=== PATIENT | female | born 1960 | race African-American/Black ===

== ENCOUNTER 2022-01-15 21:15 | Inpatient (IN) | payer MEDICAID, OTHER ==
[~2022-01-15] VITALS: Ht 160 cm; Wt 52.2 kg
[2022-01-15 23:08] LABS: HEMATOCRIT. 39.3 % (36.0-48.0); MEAN CORPUSCULAR HEMOGLOBIN 31.9 pg (28.0-32.0); MEAN CORPUSCULAR VOLUME 96.5 fL (81.0-99.0); MEAN PLATELET VOLUME 7.9 fl (7.4-10.4); PLATELET 226 x1000/uL (130-400); RED BLOOD CELL COUNT 4.07 mill/uL (4.2-5.4); RED CELL DISTRIBUTION WIDTH 13.7 % (11.6-14.6)
[2022-01-15 23:17] LABS: CHLORIDE 106 mEq/L (98-107)
[2022-01-15 23:32] LABS: CLARITY URINE CLEAR (CLEAR); COLOR URINE YELLOW (YELLOW); KETONES URINE TRACE (NEGATIVE); LEUKOCYTE ESTERASE URINE TRACE (NEGATIVE); NITRITE URINE POSITIVE (NEGATIVE); OCCULT BLOOD URINE NEGATIVE (NEGATIVE); PROTEIN URINE NEGATIVE (NEGATIVE); UROBILINOGEN URINE 0.2 E.U./dL (0.2-1.0)
[2022-01-16] MEDS ORDERED: ONDANSETRON HCL 4MG/2ML INJ IV PRN (07:00)
[2022-01-16] MEDS ORDERED: MAGNESIUM/ALUMINUM HYDROXIDE/SIMETHICONE 30ML UDC PO PRN (07:00)
[2022-01-16] MEDS ORDERED: DOCUSATE SODIUM 100MG CAPSULE PO PRN (07:00)
[2022-01-16] MEDS ORDERED: ACETAMINOPHEN 325MG TABLET PO PRN (07:00)
[2022-01-16] MEDS: DEXT 5%/0.45% NACL 1000ML 1,000 ML IV SCH ×2 (07:21→20:20)
[2022-01-16 08:18] LABS: PLATELET ESTIMATE NORMAL
[2022-01-16] MEDS: ENOXAPARIN 40MG/0.4ML SYR SUBCUT SCH (09:56)
[2022-01-16] MEDS ORDERED: BISACODYL 10MG SUPP PR PRN (13:00)
[2022-01-16] MEDS ORDERED: LACTULOSE 20G/30ML UDC PO SCH (13:00)
[2022-01-16] MEDS: NITROFURANTOIN 100MG M/M CAPSULE PO SCH ×2 (14:30→21:53)
[2022-01-16] MEDS: HYDROCODONE/ACETAMINOPHEN 5/325MG TABLET PO PRN (16:15)
[2022-01-17 01:10] VITALS: BP 126/67
[2022-01-17] MEDS: HYDROCODONE/ACETAMINOPHEN 5/325MG TABLET PO PRN (04:15)
[2022-01-17 07:08] LABS: BASOPHILS % 0.8 % (0.0-2.0); EOSINOPHILS % 1.4 % (0.0-5.0); HEMATOCRIT. 38.5 % (36.0-48.0); HEMOGLOBIN. 12.6 g/dL (12.0-16.0); MEAN CORPUSCULAR HEMOGLOBIN 31.6 pg (28.0-32.0); MEAN CORPUSCULAR VOLUME 96.3 fL (81.0-99.0); MEAN PLATELET VOLUME 8.3 fl (7.4-10.4); NEUTROPHILS % 62.8 % (40.0-76.0); PLATELET 234 x1000/uL (130-400); RED BLOOD CELL COUNT 3.99 mill/uL (4.2-5.4); RED CELL DISTRIBUTION WIDTH 13.8 % (11.6-14.6)
[2022-01-17 08:00] VITALS: BP 101/69
[2022-01-17 08:26] LABS: CHLORIDE 108 mEq/L (98-107)
[2022-01-17] MEDS: NITROFURANTOIN 100MG M/M CAPSULE PO SCH (09:04)
[2022-01-17] MEDS: ENOXAPARIN 40MG/0.4ML SYR SUBCUT SCH (09:05)
[2022-01-17] MEDS: DEXT 5%/0.45% NACL 1000ML 1,000 ML IV SCH (09:05)
[2022-01-17 12:00] VITALS: BP 102/68
[2022-01-17 15:10] VITALS: BP 99/55
== END 2022-01-17 15:38 | disposition home or self-care (01) | DRG 463 ==
LOC: ER 21:15 → EDBD 01-16 04:57 → 6EST 01-16 04:57 → ENRESERV 01-17 00:34
PROVIDERS: ADMIT Hospitalist; ATTEND Hospitalist
DX: N39.0 Urinary tract infection, site not specified (principal); F17.200 Nicotine dependence, unspecified, uncomplicated; M19.90 Unspecified osteoarthritis, unspecified site; I10 Essential (primary) hypertension; R10.9 Unspecified abdominal pain; Z20.822 Contact with and (suspected) exposure to COVID-19; J44.9 Chronic obstructive pulmonary disease, unspecified; K59.00 Constipation, unspecified; Z88.6 Allergy status to analgesic agent; Z98.891 History of uterine scar from previous surgery
CPT/HCPCS: 36415; 71045; 74177; 80053; 81003; 85025; 93970; 99285; J1650